=== PATIENT | female | born 1975 | race Caucasian/White ===

== ENCOUNTER 2016-08-19 08:12 | Emergency (ER) | payer OTHER ==
[~2016-08-19] VITALS: Ht 171.4 cm; Wt 101.7 kg
[~2016-08-19 08:12] MED LIST: "\\\"BLOOD PRESSURE MED\\\""; ABILIFY20 MG PO; ADVAIR 250/501 DISK IH; AMBIEN5 MG PO; AZITHROMYCIN250 MG PO; FLUOXETINE HCL10 MG PO; LASIX20 MG PO; LEVOTHROID50 MCG PO; OXCARBAZEPINE600 MG PO; PANTOPRAZOLE SO40 MG PO; PAROXETINE HCL40 MG PO; PRENATAL VITAM1 EAC1 PO; PROAIR HFA8.5 GM IH; ST. JOSEPH ASPI81 MG PO; SUBOXONE 8 M1 TABLET SL; TIROSINT50 MCG PO; TRILEPTAL300 MG PO; TYLENOL EXTRA500 MG PO; VISTARIL25 MG PO; ZESTRIL10 MG PO; [UNRECOGNIZED DRUG - REMARK]
[2016-08-19] MEDS ORDERED: CLINDAMYCIN HC300 MG PO (08:34)
[2016-08-19] MEDS ORDERED: HYDROCHLOROTHIA25 MG PO (08:36)
[2016-08-19] MEDS ORDERED: CYMBALTA60 MG PO (08:38)
[2016-08-19] MEDS ORDERED: K-DUR20 MEQ PO (08:38)
[2016-08-19] MEDS ORDERED: KEFLEX500 MG PO (08:39)
[2016-08-19 08:57] LABS: EOSINOPHIL (%) 5.1 % (0-5); EOSINOPHIL COUNT 0.3 K/uL (0-0.3); HEMATOCRIT 31.6 % (36.0-46.0); IMMATURE GRANULOCYTE (%) 0.2 % (0.0-0.7); IMMATURE GRANULOCYTE COUNT 0.1 K/uL; LYMPHOCYTE COUNT 1.1 K/uL (1.0-2.8); MCHC 36.1 G/DL (30.0-36.0); MCV 94.3 FL (83-99); MEAN PLAT.VOLUME 8.4 uM^3 (9.5-12.4); MONOCYTE (%) 6.3 % (3-12); MONOCYTE COUNT 0.3 K/uL (0-0.8); NEUTROPHIL (%) 66.7 % (45-76); NEUTROPHIL COUNT 3.3 K/uL (1.8-6.4); PLATELET COUNT 164 K/uL (156-360); RBC DIS.WIDTH-CV 12.4 % (11.8-14.6); RBC DIS.WIDTH-SD 40.6 % (39-53); RED BLOOD COUNT 3.35 M/uL (3.80-5.20); WHITE BLOOD COUNT 4.9 K/uL (4.1-10.2)
[2016-08-19 09:05] LABS: CHLORIDE 103 mEq/L (99-109); POTASSIUM 3.3 mEq/L (3.7-5.4); SODIUM 143 mEq/L (136-147)
[2016-08-19 09:07] LABS: GLUCOSE 129 mg/dL (70-99)
[2016-08-19 09:09] LABS: ANION GAP 9 MEQ/L (2-14)
[2016-08-19 09:11] LABS: GFR ESTIMATE (CALCULATED) > 59 mL/min/
[2016-08-19 09:12] LABS: UREA NITROGEN (BUN) 13 mg/dL (9-23)
[2016-08-19 10:16] VITALS: BP 132/70
== END 2016-08-19 10:19 | disposition home or self-care (01) ==
LOC: EME 08:12
PROVIDERS: Physician Assistant
DX: L03.116 Cellulitis of left lower limb (principal)
CPT/HCPCS: 80048; 85025; 87070; 87075; 87077; 87147; 87186; 87205; 99281; 99284

== ENCOUNTER 2016-10-07 07:53 | Emergency (ER) | payer OTHER ==
[~2016-10-07] VITALS: Ht 171.4 cm; Wt 101.4 kg
[~2016-10-07 07:53] MED LIST changes: +CLINDAMYCIN HC300 MG PO; +CYMBALTA60 MG PO; +HYDROCHLOROTHIA25 MG PO; +K-DUR20 MEQ PO; +KEFLEX500 MG PO
[2016-10-07 08:40] LABS: ADD MIUA? YES; BILIRUBIN NEGATIVE; BLOOD NEGATIVE; COLOR AMBER ((YELLOW)); GLUCOSE (STRIP) NEGATIVE; KETONES NEGATIVE; LEUKOCYTES MODERATE; NITRITE NEGATIVE; PROTEIN (STRIP) 100; SPECIFIC GRAVITY 1.023 (1.000-1.030); UROBILINOGEN 0.2 MG/DL (0.2-1.0)
[2016-10-07 08:49] LABS: BACTERIA 2+ /HPF; EPITHELIAL CELLS 4+ /HPF; MUCUS 2+ /LPF; UCUL ADDED? YES; WHITE BLOOD CELLS 20-30 /HPF (0-5)
[2016-10-07 09:06] LABS: EOSINOPHIL (%) 4.3 % (0-5); EOSINOPHIL COUNT 0.3 K/uL (0-0.3); HEMATOCRIT 35.5 % (36.0-46.0); IMMATURE GRANULOCYTE (%) 0.2 % (0.0-0.7); INSTRUMENT ABS NEUTROPHIL CT 3.6 K/uL; LYMPHOCYTE COUNT 1.8 K/uL (1.0-2.8); MCH 34.2 PG (29.0-34.0); MCHC 36.6 G/DL (30.0-36.0); MCV 93.4 FL (83-99); MEAN PLAT.VOLUME 8.8 uM^3 (9.5-12.4); MONOCYTE (%) 6.6 % (3-12); MONOCYTE COUNT 0.4 K/uL (0-0.8); NEUTROPHIL (%) 59.3 % (45-76); NEUTROPHIL COUNT 3.6 K/uL (1.8-6.4); PLATELET COUNT 187 K/uL (156-360); RBC DIS.WIDTH-CV 12.4 % (11.8-14.6); RBC DIS.WIDTH-SD 41.9 % (39-53)
[2016-10-07 09:17] LABS: CHLORIDE 101 mEq/L (99-109); POTASSIUM 3.4 mEq/L (3.7-5.4); SODIUM 141 mEq/L (136-147)
[2016-10-07 09:19] LABS: GLUCOSE 142 mg/dL (70-99)
[2016-10-07 09:20] LABS: ANION GAP 11 MEQ/L (2-14)
[2016-10-07 09:21] LABS: TOTAL BILIRUBIN 0.3 mg/dL (0.0-1.0)
[2016-10-07 09:23] LABS: ALKALINE PHOSPHATASE 98 IU/L (3-129); GFR ESTIMATE (CALCULATED) > 59 mL/min/
[2016-10-07 09:24] LABS: UREA NITROGEN (BUN) 10 mg/dL (9-23)
[2016-10-07] MEDS ORDERED: CIPRO500 MG PO (09:40)
[2016-10-07 09:55] VITALS: BP 116/81
== END 2016-10-07 09:56 | disposition home or self-care (01) ==
LOC: EME 07:53
PROVIDERS: Emergency Medicine
DX: N39.0 Urinary tract infection, site not specified (principal); R14.0 Abdominal distension (gaseous); I10 Essential (primary) hypertension; J45.909 Unspecified asthma, uncomplicated; G89.29 Other chronic pain; Z79.891 Long term (current) use of opiate analgesic; Z87.891 Personal history of nicotine dependence
CPT/HCPCS: 74022; 80053; 81003; 85025; 87086; 99281; 99284

== ENCOUNTER 2016-10-14 11:07 | Emergency (ER) | payer OTHER ==
[~2016-10-14] VITALS: Ht 170.2 cm; Wt 106.7 kg
[~2016-10-14 11:07] MED LIST changes: +CIPRO500 MG PO
[2016-10-14 12:25] LABS: HEMATOCRIT 34.8 % (36.0-46.0); MCH 33.7 PG (29.0-34.0); MCHC 36.2 G/DL (30.0-36.0); MEAN PLAT.VOLUME 8.8 uM^3 (9.5-12.4); PLATELET COUNT 187 K/uL (156-360); RBC DIS.WIDTH-CV 12.4 % (11.8-14.6); RBC DIS.WIDTH-SD 42.4 % (39-53); RED BLOOD COUNT 3.74 M/uL (3.80-5.20); WHITE BLOOD COUNT 5.2 K/uL (4.1-10.2)
[2016-10-14 12:36] LABS: CHLORIDE 97 mEq/L (99-109); POTASSIUM 3.5 mEq/L (3.7-5.4); SODIUM 139 mEq/L (136-147)
[2016-10-14 12:38] LABS: GLUCOSE 128 mg/dL (70-99)
[2016-10-14 12:40] LABS: ANION GAP 11 MEQ/L (2-14); TOTAL BILIRUBIN 0.4 mg/dL (0.0-1.0)
[2016-10-14 12:42] LABS: ALKALINE PHOSPHATASE 96 IU/L (3-129); GFR ESTIMATE (CALCULATED) > 59 mL/min/
[2016-10-14 12:43] LABS: UREA NITROGEN (BUN) 9 mg/dL (9-23)
[2016-10-14 12:52] LABS: QUANTITATIVE HCG < 4.0 MIU/ML
[2016-10-14] MEDS ORDERED: SUBUTEX (13:15)
[2016-10-14] MEDS ORDERED: QUETIAPINE FUM200 MG PO (13:16)
[2016-10-14] MEDS ORDERED: NEURONTIN400 MG PO (13:16)
[2016-10-14 14:00] LABS: LIPASE 15 U/L (1.0-51.0)
[2016-10-14] MEDS ORDERED: KLONOPIN0.5 M1 PO (16:07)
[2016-10-14 16:21] VITALS: BP 165/111
== END 2016-10-14 16:21 | disposition home or self-care (01) ==
LOC: RME 11:07 → EME 11:07 → RME 16:21
DX: K59.00 Constipation, unspecified (principal); F41.9 Anxiety disorder, unspecified; J45.909 Unspecified asthma, uncomplicated; G89.29 Other chronic pain; I10 Essential (primary) hypertension; K21.9 Gastro-esophageal reflux disease without esophagitis; Z87.891 Personal history of nicotine dependence
CPT/HCPCS: 71020; 74020; 80053; 81003; 83690; 84702; 85027; 99281; 99284; Q0177